=== PATIENT | female | born 1990 | race American Indian/Alaskan Native ===

== ENCOUNTER 2017-10-09 00:58 | Emergency (ER) | payer MEDICAID ==
[2017-10-09 01:11] VITALS: TEMP 99.1
[2017-10-09] MEDS ORDERED: Sodium Chloride 0.9% 1,000 ML IV STA (01:17)
[2017-10-09 01:52] LABS: HEMOGLOBIN 11.7 g/dL (12.0-16.0); MEAN CELL VOLUME 94.8 fl (80.0-105.0); MEAN CORPUSCULAR HEMOGLOBIN 30.3 pg (25.0-35.0); MEAN PLATELET VOLUME 9.7 fl (7.0-11.0); RBC 3.86 10^6/uL (3.5-6.1); RED CELL DISTRIBUTION WIDTH 12.8 % (11.5-14.5); WHITE BLOOD COUNT 4.2 10^3/ul (4.5-11.0)
[2017-10-09 02:03] LABS: ALB/GLOB RATIO 1.2 (1.1-1.8); ALT/SGPT 21 U/L (7-56); AST/SGOT 23 U/L (14-36); BLOOD UREA NITROGEN 10 mg/dL (7-21); CALCIUM 9.3 mg/dL (8.4-10.5); GFR AFRICAN-AMERICAN > 60; GFR NON-AFRICAN AMERICAN > 60; LIPASE 106 U/L (23-300)
--- NOTE | 2017-10-09 02:07 | ED PDOC ---
Arrival/HPI - General Chief Complaint: GI Problem Time Seen by Provider: 10/09/17 01:02 Historian: Patient - History of Present Illness Narrative History of Present Illness (Text): 10/09/17 01:16 27 year old female, with no significant past medical history, presents to the Emergency department complaining of onset abdominal cramps and occassional back discomfort since late yesterday afternoon. Patient also reports occasional episodes of nausea and vomiting, diarrhea but denies any fevers, chills, shortness of breath, neck pain, urinary/bowel changes, headache, dizziness, or any other complaint. PMD: Dr. Misty Franklin Time/Duration: Other (late yesterday afternoon) Symptom Onset: Sudden Symptom Course: Unchanged Activities at Onset: Light Context: Home Past Medical History - Provider Review Nursing Documentation Reviewed: Yes - Infectious Disease Hx of Infectious Diseases: None - Cardiac Hx Cardiac Disorders: No - Pulmonary Hx Respiratory Disorders: No - Neurological Hx Neurological Disorder: No - HEENT Hx HEENT Disorder: No - Renal Hx Renal Disorder: No - Endocrine/Metabolic Hx Endocrine Disorders: No - Hematological/Oncological Hx Blood Disorders: No - Integumentary Hx Dermatological Disorder: No - Musculoskeletal/Rheumatological Hx Musculoskeletal Disorders: No - Gastrointestinal Hx Gastrointestinal Disorders: No - Genitourinary/Gynecological Other/Comment: genital herpes - Psychiatric Hx Psychophysiologic Disorder: No Hx Substance Use: No - Anesthesia Hx Anesthesia: No Hx Anesthesia Reactions: No Hx Malignant Hyperthermia: No Family/Social History - Physician Review Nursing Documentation Reviewed: Yes Family/Social History: No Known Family HX Smoking Status: Never Smoked Hx Alcohol Use: No Hx Substance Use: No Allergies/Home Meds Allergies/Adverse Reactions: Allergies No Known Allergies Allergy (Verified 05/19/15 22:12) Review of Systems - Physician Review All systems were reviewed & negative as marked: Yes - Review of Systems Constitutional: absent: Fevers, Other (Chills) Respiratory: absent: SOB, Cough Cardiovascular: Other (Chest discomfort ) Gastrointestinal: Nausea, Vomiting. absent: Abdominal Pain, Diarrhea Genitourinary Female: absent: Dysuria, Frequency, Hematuria Musculoskeletal: Back Pain. absent: Neck Pain Neurological: absent: Headache, Dizziness Physical Exam Vital Signs Reviewed: Yes Vital Signs Temp Pulse Resp BP Pulse Ox 10/09/17 03:23 81 16 101/53 L 98 10/09/17 01:02 99.1 F 91 H 18 115/70 99 Temperature: Afebrile Blood Pressure: Normal Pulse: Regular Respiratory Rate: Normal Appearance: Positive for: Well-Appearing, Non-Toxic, Comfortable Pain Distress: None Mental Status: Positive for: Alert and Oriented X 3 - Systems Exam Head: Present: Atraumatic, Normocephalic Pupils: Present: PERRL Extroacular Muscles: Present: EOMI Conjunctiva: Present: Normal Mouth: Present: Moist Mucous Membranes Neck: Present: Normal Range of Motion Respiratory/Chest: Present: Clear to Auscultation, Good Air Exchange. No: Respiratory Distress, Accessory Muscle Use Cardiovascular: Present: Regular Rate and Rhythm, Normal S1, S2. No: Murmurs Abdomen: Present: Normal Bowel Sounds. No: Tenderness, Distention, Peritoneal Signs Back: Present: Normal Inspection Upper Extremity: Present: Normal Inspection. No: Cyanosis, Edema Lower Extremity: Present: Normal Inspection. No: Edema Neurological: Present: GCS=15, CN II-XII Intact, Speech Normal Skin: Present: Warm, Dry, Normal Color. No: Rashes Psychiatric: Present: Alert, Oriented x 3, Normal Insight, Normal Concentration Medical Decision Making ED Course and Treatment: 10/09/17 01:16 Impression: 27 year old female presents complaining of onset abdominal and occassional back discomfort associated with occasional episode of nausea and vomiting ,diarrhea that began late yesterday afternoon. Plan: -- Labs -- Pepcid, IV Fluids, Zofran Inj -- HCG, Qualit Urine -- Urinalysis -- Reassess and disposition Progress Notes: EKG shows NSR at [address]PM with non-specific ST/T changes. Interpreted by me. - Lab Interpretations Lab Results: 10/09/17 01:25 10/09/17 01:25 Lab Results 10/09/17 03:16: Urine Color Yellow, Urine Appearance Clear, Urine pH 7.5, Ur Specific [place] 1.020, Urine Protein Trace H, Urine Glucose (UA) Negative, Urine Ketones 15 H, Urine Blood Negative, Urine Nitrate Negative, Urine Bilirubin Negative, Urine Urobilinogen 1.0 H, Ur Leukocyte Esterase Negative, Urine RBC 0 - 2, Urine WBC 0 - 2, Ur Epithelial Cells 1 - 3, Urine Bacteria Few , Urine HCG, Qual Negative 10/09/17 01:25: Influenza Typ A,B (EIA) Negative for flu a/b 10/09/17 01:25: WBC 4.2 L, RBC 3.86, Hgb 11.7 L, Hct 36.6, MCV 94.8, MCH 30.3, MCHC 32.0, RDW 12.8, Plt Count 192, MPV 9.7 10/09/17 01:25: Sodium 142, Potassium 3.4 L, Chloride 104, Carbon Dioxide 26, Anion Gap 15, BUN 10, Creatinine 0.7, Est GFR ( Amer) > 60, Est GFR (Non- Af Amer) > 60, Random Glucose 104, Calcium 9.3, Total Bilirubin 0.8, AST 23, ALT 21, Alkaline Phosphatase 46, Total Protein 7.4, Albumin 4.0, Globulin 3.4, Albumin/Globulin Ratio 1.2, Lipase 106 I have reviewed the lab results: Yes - EKG Interpretation Interpreted by ED Physician: Yes Type: 12 lead EKG - Medication Orders Current Medication Orders: Potassium Chloride (K-Dur 20 Meq Er Tab) 20 meq PO STAT STA Stop: 10/09/17 06:06 Discontinued Medications Famotidine (Pepcid) 20 mg IVP STAT STA Stop: 10/09/17 01:18 Last Admin: 10/09/17 01:39 Dose: 20 mg IVP Administration Document 10/09/17 01:39 YP (Rec: 10/09/17 01:39 YP [id number]) Charges for Administration # of IVP Administrations 1 Sodium Chloride (Sodium Chloride 0.9%) 1,000 mls @ 999 mls/hr IV .Q1H1M STA Stop: 10/09/17 02:17 Last Admin: 10/09/17 01:29 Dose: 999 mls/hr eMAR Start Stop Document 10/09/17 01:29 YP (Rec: 10/09/17 01:29 YP [id number]) Intravenous Solution Start Date 10/09/17 Start Time 01:25 End Date 10/09/17 End time 02:25 Total Infusion Time 60 Ketorolac Tromethamine (Toradol) 30 mg IVP ONCE ONE Stop: 10/09/17 04:53 Last Admin: 10/09/17 04:59 Dose: 30 mg MAR Pain Assessment Document 10/09/17 04:59 DEANDRE (Rec: 10/09/17 05:08 DEANDRE [id number]) Pain Reassessment Is this a pain reassessment? No IVP Administration Document 10/09/17 04:59 DEANDRE (Rec: 10/09/17 05:08 DEANDRE [id number]) Charges for Administration # of IVP Administrations 1 Ondansetron HCl (Zofran Inj) 4 mg IVP ONCE ONE Stop: 10/09/17 01:18 Last Admin: 10/09/17 03:22 Dose: 4 mg IVP Administration Document 10/09/17 03:22 YP (Rec: 10/09/17 03:23 YP [id number]) Charges for Administration # of IVP Administrations 1 - Scribe Statement The provider has reviewed the documentation as recorded by the Chelita Benz Provider Scribe Attestation: All medical record entries made by the Scribe were at my direction and personally dictated by me. I have reviewed the chart and agree that the record accurately reflects my personal performance of the history, physical exam, medical decision making, and the department course for this patient. I have also personally directed, reviewed, and agree with the discharge instructions and disposition. Disposition/Present on Arrival - Present on Arrival Any Indicators Present on Arrival: No History of DVT/PE: No History of Uncontrolled Diabetes: No Urinary Catheter: No History of Decub. Ulcer: No History Surgical Site Infection Following: None - Disposition Have Diagnosis and Disposition been Completed?: Yes Diagnosis: Gastroenteritis Disposition: HOME/ ROUTINE Disposition Time: 06:10 Patient Plan: Discharge Condition: GOOD Discharge Instructions (ExitCare): Gastroenteritis (ED) Additional Instructions: Drink frequent small amounts of liquids at a time/advance diet slowly as tolerated/take meds as prescribed/follow up with your doctor this week Prescriptions: Ondansetron [Zofran Odt] 4 mg PO Q6 PRN #12 odt PRN Reason: Nausea/Vomiting Referrals: Elsie Franklin MD [Primary Care Provider] - Follow up with primary Forms: [employer] (Scottish)
[2017-10-09 04:24] LABS: PH,URINE 7.5 (4.7-8.0); URINE BILIRUBIN NEGATIVE (NEGATIVE); URINE BLOOD NEGATIVE (NEGATIVE); URINE GLUCOSE (UA) NEGATIVE (NEGATIVE); URINE LEUKOCYTE ESTERASE NEGATIVE Leu/uL (NEGATIVE); URINE NITRATE NEGATIVE (NEGATIVE); URINE PROTEIN TRACE mg/dL (<30 mg/dL)
[2017-10-09 04:33] LABS: URINE APPEARANCE CLEAR (CLEAR); URINE COLOR YELLOW (YELLOW)
[2017-10-09 04:36] LABS: HCG,QUALITATIVE URINE NEGATIVE (NEGATIVE)
[2017-10-09 04:53] LABS: URINE BACTERIA FEW (NEG); URINE RBC 0 - 2 /hpf (0-2); URINE WBC 0 - 2 /hpf (0-6)
[2017-10-09] MEDS ORDERED: Potassium Chloride 20 mEq ER Tab PO STA (06:05)
[2017-10-09 06:31] VITALS: BP 114/77; PULSE 91; RESP 18; O2SAT 99
== END 2017-10-09 06:32 | disposition home or self-care (01) ==
LOC: ED 00:58
DX: K52.9 Noninfective gastroenteritis and colitis, unspecified (principal)
CPT/HCPCS: 80053; 81001; 83690; 84703; 85027; 87804; 96361; 96374; 96375; 99285; J1885; J2405; J7040